=== PATIENT | female | born 1960 | race Caucasian/White ===

== ENCOUNTER 2017-11-01 09:25 | Emergency (ER) | payer BC ==
[~2017-11-01] VITALS: Ht 167.6 cm; Wt 77.1 kg
[2017-11-01 09:25] VITALS: BP 103/58
== END 2017-11-01 10:47 | disposition home or self-care (01) ==
LOC: ER 09:39
DX: J11.1 Influenza due to unidentified influenza virus with other respiratory manifestations (principal)
CPT/HCPCS: A4606; Z7610